=== PATIENT | female | born 2000 | race Hispanic/Latino ===

== ENCOUNTER 2023-02-17 13:20 | Emergency (ER) | payer MEDICAID ==
[~2023-02-17] VITALS: Ht 149.9 cm; Wt 83.0 kg
[2023-02-17 14:59] LABS: BASOPHILS % (AUTO) 0.3 % (0.0-5.0); EOSINOPHILS % (AUTO) 0.7 % (0.0-8.0); LYMPHOCYTES % (AUTO) 14.6 % (21.0-51.0); MEAN CORPUSCULAR HEMOGLOBIN 31.1 pg (27.0-33.0); MEAN CORPUSCULAR HGB CONC 35.1 g/dL (32.0-36.0); MEAN CORPUSCULAR VOLUME 88.5 fL (79-99); MONOCYTES % (AUTO) 4.5 % (3.0-13.0); PLATELET COUNT (AUTO) 346 K/uL (130-400); RED BLOOD CELL COUNT(AUTO) 4.18 MIL/uL (4.00-5.50); RED CELL DISTRIBUTION WIDTH 14.4 % (11.0-15.5); WHITE BLOOD COUNT (AUTO) 10.7 K/uL (4.8-10.8)
[2023-02-17 15:01] LABS: APPEARANCE,URINE CLOUDY (CLEAR); BILIRUBIN,URINE NEGATIVE (NEGATIVE); COLOR,URINE YELLOW (YELLOW); GLUCOSE, URINE (UA) NEGATIVE (NEGATIVE); KETONES,URINE NEGATIVE (NEGATIVE); LEUKOCYTE ESTERASE ,URINE NEGATIVE Leu/uL (NEGATIVE); NITRATE,URINE NEGATIVE (NEGATIVE); OCCULT BLOOD,URINE SMALL (NEGATIVE); PROTEIN,URINE 600 mg/dL (NEGATIVE); UROBILINOGEN,URINE 0.2 mg/dL (0.2-1.0)
[2023-02-17 15:06] LABS: BACTERIA,URINE RARE /HPF (None Seen); SQUAMOUS EPITHELIAL CELL,UR MOD /HPF (0-2)
[2023-02-17 15:07] LABS: CREATININE 0.8 mg/dL (0.5-1.5); POTASSIUM 3.3 mmol/L (3.5-5.1)
[2023-02-17 15:11] LABS: TOTAL PROTEIN, SERUM 5.3 g/dL (6.0-8.3)
[2023-02-17 15:23] LABS: B-TYPE NATRIURETIC PEPTIDE 30 pg/mL (0-100)
[2023-02-17] MEDS ORDERED: ACETAMINOPHEN 500 MG TABLET PO ONE (20:00)
[2023-02-17] MEDS ORDERED: CEPH500B PO (20:16)
[2023-02-17 20:42] VITALS: BP 125/77
== END 2023-02-17 20:47 | disposition home or self-care (01) ==
LOC: EDH 13:20
DX: O23.42 Unspecified infection of urinary tract in pregnancy, second trimester (principal); N39.0 Urinary tract infection, site not specified; O12.02 Gestational edema, second trimester; Z3A.22 22 weeks gestation of pregnancy
CPT/HCPCS: 36415; 76770; 80053; 81001; 83880; 85025; 93971

== ENCOUNTER 2023-03-12 15:46 | Observation (INO) | payer MEDICAID ==
[~2023-03-12] VITALS: Ht 149.9 cm; Wt 99.8 kg
[~2023-03-12 15:46] MED LIST: CEPH500B PO
[2023-03-12 17:57] LABS: APPEARANCE,URINE CLOUDY (CLEAR); BILIRUBIN,URINE NEGATIVE (NEGATIVE); COLOR,URINE YELLOW (YELLOW); GLUCOSE, URINE (UA) NEGATIVE (NEGATIVE); KETONES,URINE NEGATIVE (NEGATIVE); LEUKOCYTE ESTERASE ,URINE NEGATIVE Leu/uL (NEGATIVE); NITRATE,URINE NEGATIVE (NEGATIVE); OCCULT BLOOD,URINE SMALL (NEGATIVE); PROTEIN,URINE 600 mg/dL (NEGATIVE); UROBILINOGEN,URINE 0.2 mg/dL (0.2-1.0)
[2023-03-12 18:24] LABS: BACTERIA,URINE FEW /HPF (None Seen); MUCUS,URINE RARE LPF (None Seen); SQUAMOUS EPITHELIAL CELL,UR MOD /HPF (0-2)
[2023-03-12 19:21] LABS: HEMATOCRIT 35.8 % (36-48); MEAN CORPUSCULAR HEMOGLOBIN 31.5 pg (27.0-33.0); MEAN CORPUSCULAR HGB CONC 34.4 g/dL (32.0-36.0); MEAN CORPUSCULAR VOLUME 91.6 fL (79-99); RED BLOOD CELL COUNT(AUTO) 3.91 MIL/uL (4.00-5.50); RED CELL DISTRIBUTION WIDTH 13.7 % (11.0-15.5)
[2023-03-12 19:23] LABS: CARBON DIOXIDE 22 mmol/L (21-32); CHLORIDE 107 mmol/L (101-111); CREATININE 0.6 mg/dL (0.5-1.5); GLOMERULAR FILTR. RATE CALC 128 mL/min (>90); GLUCOSE,RANDOM 93 mg/dL (70-105); POTASSIUM 3.8 mmol/L (3.5-5.1); SODIUM SERUM 133 mmol/L (136-145); UREA NITROGEN, BLOOD 8 mg/dL (7-18)
[2023-03-12 19:27] LABS: ALANINE AMINOTRANSFERASE 30 U/L (12-78); ASPARTATE AMINOTRANSFERASE 18 U/L (10-37); TOTAL PROTEIN, SERUM 4.1 g/dL (6.0-8.3)
[2023-03-12 19:28] LABS: ALBUMIN < 0.6 g/dL (3.5-5.0)
[2023-03-12 20:12] VITALS: BP 106/69
[2023-03-12] MEDS ORDERED: AEC81 PO (21:25)
[2023-03-12] MEDS ORDERED: PREN-154 PO (21:25)
[2023-03-12 23:22] VITALS: BP 102/60
[2023-03-13 03:53] VITALS: BP 107/60
[2023-03-13 08:07] VITALS: BP 114/58
[2023-03-13 12:12] VITALS: BP 99/63
[2023-03-13] MEDS: CELESTONE SOLUSPAN 6 MG/ML 5ML VIAL IM SCH (12:59)
[2023-03-13 16:24] VITALS: BP 111/63
[2023-03-13] MEDS ORDERED: PHARMACY COMMUNICATION MISC SCH (16:30)
[2023-03-13] MEDS ORDERED: ALBUMIN (HUMAN) 25% 100 ML IV ONE (17:00)
[2023-03-13 18:57] LABS: CREATININE,SERUM FOR CRCL 0.6 mg/dL (0.6-1.3)
[2023-03-13 19:13] VITALS: BP 112/66
[2023-03-13 20:36] LABS: COLLECTION PERIOD,URINE 24 HR; TOTAL VOLUME 24HRS,URINE 650 mL; TPROTEIN TIMED,URINE 2590 mg/dL; TPROTEIN U,24HR CALC 16835 mg/24HR (0-165)
[2023-03-13] MEDS: FAMOTIDINE 20MG TAB PO SCH (20:49)
[2023-03-13] MEDS: PREDNISONE 20 MG TABLET PO SCH (20:50)
[2023-03-13] MEDS ORDERED: ALBUMIN (HUMAN) 25% 100 ML IV SCH (22:00)
[2023-03-13 22:25] VITALS: BP 112/68
[2023-03-13] MEDS ORDERED: ACETAMINOPHEN 325 MG TAB PO PRN (23:00)
[2023-03-14] MEDS: ALBUMIN (HUMAN) 25% 100 ML IV SCH ×2 (00:58→09:10)
[2023-03-14 02:13] VITALS: BP 118/63
[2023-03-14 04:28] LABS: BASOPHILS % (AUTO) 0.1 % (0.0-5.0); HEMATOCRIT 31.4 % (36-48); LYMPHOCYTES % (AUTO) 6.8 % (21.0-51.0); MEAN CORPUSCULAR HEMOGLOBIN 31.6 pg (27.0-33.0); MEAN CORPUSCULAR VOLUME 90.2 fL (79-99); MONOCYTES % (AUTO) 1.8 % (3.0-13.0); NEUTROPHILS % (AUTO) 90.7 % (40.0-77.0); PLATELET COUNT (AUTO) 345 K/uL (130-400); RED BLOOD CELL COUNT(AUTO) 3.48 MIL/uL (4.00-5.50); RED CELL DISTRIBUTION WIDTH 13.4 % (11.0-15.5)
[2023-03-14 04:43] LABS: ALBUMIN 1.3 g/dL (3.5-5.0); CREATININE 0.9 mg/dL (0.5-1.5); POTASSIUM 3.7 mmol/L (3.5-5.1); TOTAL PROTEIN, SERUM 4.5 g/dL (6.0-8.3)
[2023-03-14 07:30] VITALS: BP 116/63
[2023-03-14] MEDS: FAMOTIDINE 20MG TAB PO SCH (09:10)
[2023-03-14] MEDS: PREDNISONE 20 MG TABLET PO SCH ×2 (09:10→14:22)
[2023-03-14 12:04] VITALS: BP 126/64
[2023-03-14] MEDS: CELESTONE SOLUSPAN 6 MG/ML 5ML VIAL IM SCH (12:34)
[2023-03-14 16:14] VITALS: BP 108/67
[2023-03-14] MEDS ORDERED: ALBUMIN (HUMAN) 25% 100 ML IV ONE (17:00)
== END 2023-03-14 17:10 | disposition home or self-care (01) ==
LOC: EDH 15:46 → LDH 15:47 → WSH 20:05
PROVIDERS: ADMIT Internal Medicine; ATTEND Internal Medicine
DX: O26.832 Pregnancy related renal disease, second trimester (principal); N04.1 Nephrotic syndrome with focal and segmental glomerular lesions; N17.9 Acute kidney failure, unspecified; O99.282 Endocrine, nutritional and metabolic diseases complicating pregnancy, second trimester; E87.1 Hypo-osmolality and hyponatremia; O12.02 Gestational edema, second trimester; O26.893 Other specified pregnancy related conditions, third trimester; R53.1 Weakness; O12.22 Gestational edema with proteinuria, second trimester; Z3A.25 25 weeks gestation of pregnancy; Z79.899 Other long term (current) drug therapy; Z98.890 Other specified postprocedural states
CPT/HCPCS: 99284; 80053 ×2; 85027; 86592; 86850; 86900; 86901; 87088; 87340; 81001; 36415 ×2; 96372 ×2; 96365; 82575; 84156; 96366; 85025; G0378 ×48; J0702 ×2; P9046 ×3

== ENCOUNTER 2024-02-09 14:15 | Emergency (ER) | payer MEDICAID ==
[~2024-02-09] VITALS: Ht 152.4 cm; Wt 90.3 kg
[~2024-02-09 14:15] MED LIST changes: +AEC81 PO; -CEPH500B PO; +PREN-154 PO
[2024-02-09 14:43] VITALS: BP 131/84; PULSE 85; RESP 18; O2SAT 97
[2024-02-09 15:08] LABS: HCG,QUALITATIVE URINE NEGATIVE (NEGATIVE)
[2024-02-09 15:23] LABS: APPEARANCE,URINE CLEAR (CLEAR); BILIRUBIN,URINE 0.5 mg/dL (NEGATIVE); COLOR,URINE YELLOW (YELLOW); GLUCOSE, URINE (UA) NEGATIVE (NEGATIVE); KETONES,URINE NEGATIVE (NEGATIVE); LEUKOCYTE ESTERASE ,URINE NEGATIVE Leu/uL (NEGATIVE); NITRATE,URINE NEGATIVE (NEGATIVE); OCCULT BLOOD,URINE MODERATE (NEGATIVE); PH,URINE 6.5 (5.0-8.0); PROTEIN,URINE 600 mg/dL (NEGATIVE); UROBILINOGEN,URINE 3 mg/dL (0.2-1.0)
[2024-02-09 15:28] LABS: ADD UA MICROSCOPIC YES
[2024-02-09 15:30] LABS: BACTERIA,URINE RARE /HPF (None Seen); MUCUS,URINE FEW LPF (None Seen); SQUAMOUS EPITHELIAL CELL,UR FEW /HPF (0-2)
[2024-02-09] MEDS ORDERED: PRED20TA3 PO (16:18)
[2024-02-09] MEDS ORDERED: CEPH250C2 PO (16:18)
[2024-02-09] MEDS: CEFTRIAXONE 1G VIAL IM ONE (16:28)
[2024-02-09] MEDS: DEXAMETHASONE SOD PHOSPHATE 4 MG/ML 1ML VIAL IM ONE (16:28)
== END 2024-02-09 16:57 | disposition home or self-care (01) ==
LOC: EDH 14:15
DX: N39.0 Urinary tract infection, site not specified (principal); N04.9 Nephrotic syndrome with unspecified morphologic changes; Z79.82 Long term (current) use of aspirin
CPT/HCPCS: 99284; 87088; 81001; 81025; 96372 ×2; J1100; J0696

== ENCOUNTER 2024-02-12 12:27 | Emergency (ER) | payer MEDICAID ==
[~2024-02-12] VITALS: Ht 152.4 cm; Wt 89.8 kg
[~2024-02-12 12:27] MED LIST changes: +CEPH250C2 PO; +PRED20TA3 PO
[2024-02-12 12:51] LABS: HEMATOCRIT 42.6 % (36-48); MEAN CORPUSCULAR HEMOGLOBIN 28.7 pg (27.0-33.0); MEAN CORPUSCULAR HGB CONC 34.3 g/dL (32.0-36.0); MEAN CORPUSCULAR VOLUME 83.9 fL (79-99); RED BLOOD CELL COUNT(AUTO) 5.08 MIL/uL (4.00-5.50); RED CELL DISTRIBUTION WIDTH 13.1 % (11.0-15.5); WHITE BLOOD COUNT (AUTO) 10.1 K/uL (4.8-10.8)
[2024-02-12 13:05] LABS: CREATININE 1.1 mg/dL (0.5-1.0); POTASSIUM 3.2 mmol/L (3.5-5.1)
[2024-02-12 13:10] LABS: ALBUMIN 1.2 g/dL (3.5-5.0); BILIRUBIN,TOTAL 0.2 mg/dL (0.2-1.0); TOTAL PROTEIN, SERUM 5.2 g/dL (6.0-8.3)
[2024-02-12] MEDS: FUROSEMIDE 20MG VIAL IV ONE (13:30)
[2024-02-12] MEDS: 0.9%NACL 1000ML 1,000 ML IV ONE ×2 (13:30→15:23)
[2024-02-12 15:28] LABS: APPEARANCE,URINE CLEAR (CLEAR); BILIRUBIN,URINE NEGATIVE (NEGATIVE); COLOR,URINE COLORLESS (YELLOW); GLUCOSE, URINE (UA) NEGATIVE (NEGATIVE); KETONES,URINE NEGATIVE (NEGATIVE); LEUKOCYTE ESTERASE ,URINE NEGATIVE Leu/uL (NEGATIVE); NITRATE,URINE NEGATIVE (NEGATIVE); OCCULT BLOOD,URINE NEGATIVE (NEGATIVE); PROTEIN,URINE 200 mg/dL (NEGATIVE); UROBILINOGEN,URINE 0.2 mg/dL (0.2-1.0)
[2024-02-12 15:43] LABS: ADD UA MICROSCOPIC YES
[2024-02-12 15:44] LABS: BACTERIA,URINE RARE /HPF (None Seen); HYALINE CASTS, URINE 0-1 /LPF (0-1 /LPF); MUCUS,URINE RARE LPF (None Seen); OTHER CASTS, URINE 2 /LPF (None Seen); RBC,URINE 0-1 /HPF (0-1); SQUAMOUS EPITHELIAL CELL,UR RARE /HPF (0-2); WBC,URINE 0-1 /HPF (0-1)
[2024-02-12] MEDS ORDERED: FURO20TA4 PO (16:51)
[2024-02-12 18:04] VITALS: BP 105/77; PULSE 74; RESP 18; O2SAT 97
== END 2024-02-12 18:16 | disposition home or self-care (01) ==
LOC: EDH 12:27
DX: M79.89 Other specified soft tissue disorders (principal); E86.0 Dehydration; N04.9 Nephrotic syndrome with unspecified morphologic changes; N18.9 Chronic kidney disease, unspecified; Z79.82 Long term (current) use of aspirin; Z79.899 Other long term (current) drug therapy; Z98.890 Other specified postprocedural states
CPT/HCPCS: 99283; 96374; 96361; 80053; 85027; 81001; 36415; J7030 ×2; J1940

== ENCOUNTER 2024-03-10 09:09 | Emergency (ER) | payer OTHER, MEDICAID ==
[~2024-03-10] VITALS: Ht 152.4 cm; Wt 97.5 kg
[~2024-03-10 09:09] MED LIST changes: +FURO20TA4 PO
[2024-03-10 09:53] LABS: APPEARANCE,URINE CLEAR (CLEAR); BILIRUBIN,URINE NEGATIVE (NEGATIVE); COLOR,URINE LIGHT-YELLOW (YELLOW); GLUCOSE, URINE (UA) NEGATIVE (NEGATIVE); KETONES,URINE NEGATIVE (NEGATIVE); LEUKOCYTE ESTERASE ,URINE NEGATIVE Leu/uL (NEGATIVE); NITRATE,URINE NEGATIVE (NEGATIVE); OCCULT BLOOD,URINE SMALL (NEGATIVE); PH,URINE 6.5 (5.0-8.0); PROTEIN,URINE 600 mg/dL (NEGATIVE); UROBILINOGEN,URINE 0.2 mg/dL (0.2-1.0)
[2024-03-10 09:58] LABS: BASOPHILS # (AUTO) 0.02 K/uL (0.00-0.20); BASOPHILS % (AUTO) 0.3 % (0.0-5.0); EOSINOPHILS # (AUTO) 0.08 K/uL (0.00-0.70); EOSINOPHILS % (AUTO) 1.1 % (0.0-8.0); HEMATOCRIT 41.6 % (36-48); IMMATURE GRANULOCYTE ABSOLUTE 0.02 K/uL (0-1); LYMPHOCYTES # (AUTO) 2.1 K/uL (1.0-4.8); LYMPHOCYTES % (AUTO) 28.5 % (21.0-51.0); MEAN CORPUSCULAR HEMOGLOBIN 28.9 pg (27.0-33.0); MEAN CORPUSCULAR HGB CONC 34.1 g/dL (32.0-36.0); MEAN CORPUSCULAR VOLUME 84.7 fL (79-99); MONOCYTES # (AUTO) 0.5 K/uL (0.1-1.0); MONOCYTES % (AUTO) 6.6 % (3.0-13.0); NEUTROPHILS # (AUTO) 4.6 K/uL (1.8-7.7); NEUTROPHILS % (AUTO) 63.2 % (40.0-77.0); PLATELET COUNT (AUTO) 488 K/uL (130-400); RED BLOOD CELL COUNT(AUTO) 4.91 MIL/uL (4.00-5.50); RED CELL DISTRIBUTION WIDTH 13.8 % (11.0-15.5); WHITE BLOOD COUNT (AUTO) 7.2 K/uL (4.8-10.8)
[2024-03-10 10:06] LABS: CREATININE 1.3 mg/dL (0.5-1.0); POTASSIUM 3.5 mmol/L (3.5-5.1)
[2024-03-10 10:11] LABS: ALBUMIN 0.8 g/dL (3.5-5.0); BILIRUBIN,TOTAL 0.2 mg/dL (0.2-1.0); TOTAL PROTEIN, SERUM 5.1 g/dL (6.0-8.3)
[2024-03-10 10:11] LABS: ADD UA MICROSCOPIC YES
[2024-03-10 10:23] LABS: BACTERIA,URINE FEW /HPF (None Seen); MUCUS,URINE RARE LPF (None Seen); OTHER CASTS, URINE 5 /LPF (None Seen); RBC,URINE 0-1 /HPF (0-1); SQUAMOUS EPITHELIAL CELL,UR RARE /HPF (0-2)
[2024-03-10 10:24] LABS: B-TYPE NATRIURETIC PEPTIDE 57 pg/mL (0-100)
[2024-03-10] MEDS: FUROSEMIDE 40MG VIAL IV ONE (13:06)
[2024-03-10] MEDS ORDERED: FURO-152 PO (14:31)
[2024-03-10 14:44] VITALS: BP 119/77; PULSE 72; RESP 18; O2SAT 99
== END 2024-03-10 14:56 | disposition home or self-care (01) ==
LOC: EDH 09:09
DX: N04.9 Nephrotic syndrome with unspecified morphologic changes (principal); M79.89 Other specified soft tissue disorders; Z79.82 Long term (current) use of aspirin; Z79.84 Long term (current) use of oral hypoglycemic drugs; Z79.899 Other long term (current) drug therapy; Z98.890 Other specified postprocedural states
CPT/HCPCS: 99285; 96374; 71045; 84484; 80053; 83880; 85025; 81001; 36415; 93005; J1940

== ENCOUNTER 2024-08-10 09:48 | Emergency (ER) | payer OTHER, MEDICAID ==
[~2024-08-10] VITALS: Ht 152.4 cm; Wt 90.7 kg
[~2024-08-10 09:48] MED LIST changes: +FURO-152 PO
--- NOTE | 2024-08-10 10:56 | ERN ---
General Chief Complaint: Elbow Problem Stated Complaint: RT ELBOW, LT KNEE, FALL 2 DAYS AGO Time Seen by MD: 10:07 Time Seen by Midlevel: 10:07 Source: patient History of Present Illness Initial Comments 23-year-old female presents to the ED for evaluation of right elbow pain onset 2 days ago. Patient reports left knee pain and fall, but denies any head injury, LOC or any other associated symptoms at this time. Patient reports she tripped and fell landing on her elbow and her knee. Allergies: Coded Allergies: No Known Allergies (Unverified Allergy, Unknown, 02/17/23) Home Meds Active Scripts Furosemide (Lasix) 20 Mg Tablet, 2 TAB PO DAILY for 5 Days, #10 TAB 0 Refills Prov:REVA NELSON MD 03/10/24 Furosemide (Furosemide) 20 Mg Tablet, 20 MG PO DAILY, #15 TAB Prov:KEVIN MAGDALENO VISCOSITY TESTER 02/12/24 Prednisone (Prednisone) 20 Mg Tablet, 20 MG PO DAILY for 5 Days, #5 TAB Prov:SUZAN TOWNSEND MD 02/09/24 Cephalexin (Keflex 250Mg Caps) 250 Mg Capsule, 250 MG PO TID for 5 Days, #15 CAP Prov:SUZAN TOWNSEND MD 02/09/24 Reported Medications Vits #93/Iron Fum/FA ( Formula Tablet) 1 Each Tablet, 1 EACH PO DAILY, TAB 03/12/23 Aspirin (ASPIRIN 81 MG ECTAB) 81 Mg Ectab, 81 MG PO DAILY, TAB.EC 03/12/23 Past Medical History Past Medical History: Other Medical History Other: FSGS Past Surgical History: Family History Family History: Negative Social History Social History: Negative, Lives with family Female( History) History: Not Applicable LMP: Jul 22, 2024 : 1 Para: 0 Aborts: 0 ROS Dictation Constitutional: Negative for fever,chills, and weight loss Eyes: Negative for injury, pain,redness, and discharge ENT: Negative for injury,pain or swelling Cardiovascular: Negative for chest pain, palpitations, and edema Respiratory: Negative for shortness of breath, cough, and wheezing, Abdomen/GI: Negative for abdominal pain, nausea, vomiting, diarrhea, and constipation Back: Negative for injury and pain : Negative for injury, bleeding and discharge MS/Extremity: Positive for right elbow pain, left knee pain Skin: Negative for rash, and discoloration Neuro: Negative for headache, weakness, numbness, tingling, and seizure Psych: Negative for suicide ideation, homicidal ideation, and hallucinations Physical Exam Physical Exam Dictation General: awake, alert, NAD Head/Face: Normocephalic, atraumatic Eyes: PERRL, EOMI, vision at baseline ENT: oral cavity clear, TMs clear, no signs of infection Neck: Trachea midline, supple, no nuchal rigidity Cardiovascular: RRR, normal S1/S2, No MRGs, no JVD Respiratory: CTAB, no respiratory distress, No rales or wheezes Abdomen: Soft, non-tender, non-distended, normal bowel sounds, no guarding or rebound. Skin: Warm, dry, normal turgor, no rash MS/Extremity: Pulses equal, no cyanosis, neurovascular intact, FROM Neuro: COAx4, GCS 15, strength 5/5, CN 2-12 intact, normal cerebellar exam, normal gait, Psych: Normal behavior, mood, and affect normal MDM MDM: Differential diagnosis: Fall, contusion, elbow pain, knee pain Previous outside records reviewed: Old ER visits. Need for hospitalization: Patient does not meet criteria for hospitalization. Need for emergency major/minor surgery: No Patient's prior external medical records from other ER visits were reviewed by me as indicated. Prior testing and results from previous visits were reviewed. Prior tests were taken into account with medical decision making and resource utilization, independent historian/historians were used to obtain complete medical history. I independently interpreted the test that were performed, results were reviewed by me and considered findings on radiology if ordered. Medical management and examination interpretation discussions were had by me with other qualified healthcare professionals as indicated for the patient's care. ED Course Orders Procedure Category Date Status Time Elbow Comp 3+Vws Rt RAD 08/10/24 Resulted 10:54 Humerus 2+Vws Rt RAD 08/10/24 Taken 10:54 Shoulder Comp 2+Vws Rt RAD 08/10/24 Taken 10:54 Knee 3vws Lt RAD 08/10/24 Taken 10:54 Acetaminophen 500mg PHA 08/10/24 Complete Tab (Tylenol 500mg T 12:30 Current Medications Medications (Trade) Dose Ordered Sig/Mk Route PRN Reason Start Time Stop Time Status Last Admin Dose Admin Acetaminophen (TYLenol 500MG TAB) 1,000 mg ONCE ONCE PO 08/10/24 12:30 08/10/24 12:31 DC 08/10/24 12:27 Vital Signs Date Time Temp Pulse Resp B/P (MAP) Pulse Ox O2 Delivery O2 Flow Rate FiO2 08/10/24 12:22 81 16 127/89 98 Room Air* 0 08/10/24 09:54 97.9 80 16 133/90 100 Room Air* 0 08/10/24 09:50 97.9 87 16 133/90 100 Room Air 0 DX & DISP Disposition: Discharge Departure Impression: Primary Impression: Contusion of right elbow Additional Impressions: Contusion of left knee, Fall Condition: Stable Scripts Ketorolac Tromethamine (Ketorolac Tromethamine) 10 Mg Tablet 1 TAB PO TID for pain for 5 Days, #15 TAB 0 Refills Prov: ZAIRE TEE 08/10/24 Referrals: NONE (PCP) RICKIE CASTAÑEDA MD Time of Disposition: 12:52 I have reviewed, & agreed with my scribe's, documentation. (Entered by Fanny Jeong, acting as a scribe for KIRIT Tee) I have reviewed the case, and I agree with, Diagnosis and Plan I performed the substantive portion of the visit. I have reviewed and personally made and approve the management plan that is documented in the note by myself or the JONNY. I acknowledge for responsibility for the patient's management plan. I personally scribed for ZAIRE TEE (JOHN) on 08/10/24 at 10:56. Electronically submitted by Fanny Jeong ([email or web address]). ZAIRE TEE Aug 10, 2024 10:56
[2024-08-10] MEDS: acetaMINOPHEN 500 MG TABLET PO ONE (12:27)
--- NOTE | 2024-08-10 12:28 | HMCIMG ---
ELBOW COMP 3+VWS RT HISTORY: Status post fall COMPARISON: None TECHNIQUE: 2 images of right elbow were obtained. FINDINGS: There is no acute displaced fracture or dislocation. Soft tissue swelling is seen. IMPRESSION: 1. Findings as described above.
[2024-08-10] MEDS ORDERED: KETO10TA2 PO (12:52)
[2024-08-10 13:21] VITALS: BP 132/88; PULSE 88; RESP 16; TEMP 98.1; O2SAT 98
--- NOTE | 2024-08-10 13:47 | HMCIMG ---
HUMERUS 2+VWS RT HISTORY: Status post fall COMPARISON: None TECHNIQUE: Images were obtained. FINDINGS: There is no acute displaced fracture or dislocation. IMPRESSION: 1. Findings as described above.
--- NOTE | 2024-08-10 13:47 | HMCIMG ---
KNEE 3VWS LT HISTORY: Status post fall COMPARISON: None TECHNIQUE: 3 images of left knee were obtained. FINDINGS: There is no acute displaced fracture or dislocation. IMPRESSION: 1. Findings as described above.
--- NOTE | 2024-08-10 13:48 | HMCIMG ---
SHOULDER COMP 2+VWS RT HISTORY: Status post fall COMPARISON: None TECHNIQUE: 2 images of right shoulder were obtained. FINDINGS: There is no acute displaced fracture or dislocation. Degenerative changes are seen. IMPRESSION: 1. Findings as described above.
== END 2024-08-10 13:45 | disposition home or self-care (01) ==
LOC: EDH 09:48
DX: S50.01XA Contusion of right elbow, initial encounter (principal); S80.02XA Contusion of left knee, initial encounter; Z79.52 Long term (current) use of systemic steroids; Z79.82 Long term (current) use of aspirin; Z79.899 Other long term (current) drug therapy; W01.0XXA Fall on same level from slipping, tripping and stumbling without subsequent striking against object, initial encounter; Y93.89 Activity, other specified; Y92.89 Other specified places as the place of occurrence of the external cause; Y99.8 Other external cause status
CPT/HCPCS: 29505; 73030; 73060; 73080; 73562; 99284

== ENCOUNTER 2025-03-15 15:44 | Emergency (ER) | payer MEDICAID, OTHER ==
[~2025-03-15] VITALS: Ht 152.4 cm; Wt 99.8 kg
[~2025-03-15 15:44] MED LIST changes: +KETO10TA2 PO
[2025-03-15 16:24] LABS: APPEARANCE,URINE CLEAR (CLEAR); BILIRUBIN,URINE NEGATIVE (NEGATIVE); COLOR,URINE LIGHT-YELLOW (YELLOW); GLUCOSE, URINE (UA) NEGATIVE (NEGATIVE); KETONES,URINE NEGATIVE (NEGATIVE); LEUKOCYTE ESTERASE ,URINE 250 Leu/uL (NEGATIVE); NITRATE,URINE NEGATIVE (NEGATIVE); OCCULT BLOOD,URINE SMALL (NEGATIVE); PROTEIN,URINE 300 mg/dL (NEGATIVE); UROBILINOGEN,URINE 0.2 mg/dL (0.2-1.0)
[2025-03-15 16:29] LABS: ADD UA MICROSCOPIC YES
[2025-03-15 16:32] LABS: MUCUS,URINE RARE LPF (None Seen); SQUAMOUS EPITHELIAL CELL,UR FEW /HPF (0-2); WBC,URINE >100 /HPF (0-1)
[2025-03-15] MEDS ORDERED: CEPH500T PO (17:23)
--- NOTE | 2025-03-15 17:23 | ERN ---
ED Note History of Present Illness Stated Complaint: DYSURIA Chief Complaint: Painful Urination Time Seen by MD: 15:48 Time Seen by Midlevel: 16:00 Dictation: 24 y/o female c/o dysuria onset this morning.No fever, nausea, vomiting, diarrhea Allergies: Coded Allergies: No Known Allergies (Unverified Allergy, Unknown, 02/17/23) Home Meds Active Scripts Cephalexin (Cephalexin) 500 Mg Tablet, 1 TAB PO TID for 10 Days, #30 TAB 0 Refills Prov:MAGUI MARRERO DIGITAL PRE PRESS OPERATOR 03/15/25 Ketorolac Tromethamine (Ketorolac Tromethamine) 10 Mg Tablet, 1 TAB PO TID for pain for 5 Days, #15 TAB 0 Refills Prov:ZAIRE OCAMPO 08/10/24 Furosemide (Lasix) 20 Mg Tablet, 2 TAB PO DAILY for 5 Days, #10 TAB 0 Refills Prov:REVA NELSON MD 03/10/24 Furosemide (Furosemide) 20 Mg Tablet, 20 MG PO DAILY, #15 TAB Prov:KEVIN MAGDALENO PHYSICAL SCIENCE PROFESSOR 02/12/24 Prednisone (Prednisone) 20 Mg Tablet, 20 MG PO DAILY for 5 Days, #5 TAB Prov:SUZAN TOWNSEND MD 02/09/24 Cephalexin (Keflex 250Mg Caps) 250 Mg Capsule, 250 MG PO TID for 5 Days, #15 CAP Prov:SUZAN TOWNSEND MD 02/09/24 Reported Medications Vits #93/Iron Fum/FA ( Formula Tablet) 1 Each Tablet, 1 EACH PO DAILY, TAB 03/12/23 Aspirin (ASPIRIN 81 MG ECTAB) 81 Mg Ectab, 81 MG PO DAILY, TAB.EC 03/12/23 Past Medical History Past Medical History: Other Additional Past Medical Hx: FSGS Surgical History: Family History: Negative Social History: Negative, Lives with family History: Not Applicable LMP: February 12, 2025 : 1 Para: 0 Aborts: 0 Review of System Dictation Constitutional: Negative for fever,chills, and weight loss Eyes: Negative for injury, pain,redness, and discharge ENT: Negative for injury,pain or swelling Cardiovascular: Negative for chest pain, palpitations, and edema Respiratory: Negative for shortness of breath, cough, and wheezing, Abdomen/GI: Negative for abdominal pain, nausea, vomiting, diarrhea, and constipation Back: Negative for injury and pain : Negative for injury, bleeding and discharge, dysuria MS/Extremity: Negative for injury and deformity Skin: Negative for rash, and discoloration Neuro: Negative for headache, weakness, numbness, tingling, and seizure Psych: Negative for suicide ideation, homicidal ideation, and hallucinations Review of Systems: was completed Initial Vital Sign VS Vital Signs Date Time Temp Pulse Resp B/P (MAP) Pulse Ox O2 Delivery O2 Flow Rate FiO2 03/15/25 15:46 97.9 91 16 121/92 96 Room Air 0 Physical Exam Dictation General: awake, alert, NAD Head/Face: Normocephalic, atraumatic Eyes: PERRL, EOMI, vision at baseline ENT: oral cavity clear, TMs clear, no signs of infection Neck: Trachea midline, supple, no nuchal rigidity Cardiovascular: RRR, normal S1/S2, No MRGs, no JVD Respiratory: CTAB, no respiratory distress, No rales or wheezes Abdomen: Soft, non-tender, non-distended, normal bowel sounds, no guarding or rebound. Skin: Warm, dry, normal turgor, no rash MS/Extremity: Pulses equal, no cyanosis, neurovascular intact, FROM Neuro: COAx4, GCS 15, strength 5/5, CN 2-12 intact, normal cerebellar exam, normal gait, Psych: Normal behavior, mood, and affect normal Results (Laboratory/Radiology) Laboratory/Radiology Laboratory Tests Test 03/15/25 16:05 03/15/25 16:08 Human Chorionic Gonadotropin, Quant 0 mIU/mL (0-5) Urine Color LIGHT-YELLOW (YELLOW) Urine Appearance CLEAR (CLEAR) Urine pH 6.0 (5.0-8.0) Urine Specific [place] 1.020 (1.001-1.031) Urine Protein 300 mg/dL (NEGATIVE) H Urine Glucose (UA) NEGATIVE mg/dL (NEGATIVE) Urine Ketones NEGATIVE mg/dL (NEGATIVE) Urine Occult Blood SMALL (NEGATIVE) H Urine Nitrate NEGATIVE (NEGATIVE) Urine Bilirubin NEGATIVE mg/dL (NEGATIVE) Urine Urobilinogen 0.2 mg/dL (0.2-1.0) Urine Leukocyte Esterase 250 Nery/uL (NEGATIVE) H Urine RBC 6-10 /HPF (0-1) H Urine WBC >100 /HPF (0-1) H Urine Squamous Epithelial Cells FEW /HPF (0-2) Urine Bacteria None /HPF (None Seen) Labs Reviewed?: Yes ED Course ED Course Orders Procedure Category Date Status Time Urinalysis Profile LAB 03/15/25 Complete 15:49 Hcg,Quantitative LAB 03/15/25 Complete 15:49 Culture Urine GEOFFREY 03/15/25 In Process 16:29 Ceftriaxone 1g Vial PHA 03/15/25 Complete (Rocephine 1g Inj) 17:09 Current Medications Medications (Trade) Dose Ordered Sig/Mk Route PRN Reason Start Time Stop Time Status Last Admin Dose Admin Ceftriaxone Sodium (ROCEphine 1G INJ) 1 gm ONCE STAT IM 03/15/25 17:09 03/15/25 17:11 DC 03/15/25 17:48 Vital Signs Date Time Temp Pulse Resp B/P (MAP) Pulse Ox O2 Delivery O2 Flow Rate FiO2 03/15/25 15:46 97.9 91 16 121/92 96 Room Air 0 Medical Decision Making MDM MDM: 24 y/o female c/o dysuria onset this morning.No fever, nausea, vomiting, diarrhea, denies any flank pain. blood work unremarkable. UA shows evidence of urinary tract infection. Rocephin given in the emergency room. We will discharge patient with antibiotics. Differential diagnosis: Urinary tract infection, pyelonephritis, Parkinson Rationale: Tests considered and ordered secondary to shared decision making include: Previous outside records reviewed: Old ER visits. Risk of complication and/or morbidity or mortality of patient management: None Medications-Per medication reconciliation Need for hospitalization: Patient does not meet criteria for hospitalization. Need for emergency major/minor surgery: No There are no social concerns with this patient. Prescription drug management Prescriptions will include symptomatic care Patient's prior external medical records from other ER visits were reviewed by me as indicated. Prior testing and results from previous visits were reviewed. Prior tests were taken into account with medical decision making and resource utilization, independent historian/historians were used to obtain complete medical history. I independently interpreted the test that were performed, results were reviewed by me and considered findings on radiology if ordered. Medical management and examination interpretation discussions were had by me with other qualified healthcare professionals as indicated for the patient's care. DX & DISP Disposition: Discharge Departure Impression: Primary Impression: UTI (urinary tract infection) Condition: Stable Scripts Cephalexin (Cephalexin) 500 Mg Tablet 1 TAB PO TID for 10 Days, #30 TAB 0 Refills Prov: MAGUI MARRERO DIGITAL PRE PRESS OPERATOR 03/15/25 Additional Instructions: take abx and follow up pcp Referrals: SELF,REFERRAL (PCP) Time of Disposition: 17:20 I have reviewed the case, and I agree with, Diagnosis and Plan MAGUI MARRERO NP Mar 15, 2025 17:23
[2025-03-15] MEDS: cefTRIAXone 1G VIAL IM STA (17:48)
[2025-03-15 17:59] VITALS: BP 138/84; PULSE 77; RESP 20; TEMP 98.1; O2SAT 98
== END 2025-03-15 18:01 | disposition home or self-care (01) ==
LOC: EDH 15:44
DX: N39.0 Urinary tract infection, site not specified (principal); R10.2 Pelvic and perineal pain; Z79.52 Long term (current) use of systemic steroids; Z79.82 Long term (current) use of aspirin; Z79.899 Other long term (current) drug therapy; Z98.890 Other specified postprocedural states
CPT/HCPCS: 99283; 84702; 87086 ×2; 87186; 81001; 36415; 96372; J0696

== ENCOUNTER 2025-03-27 15:54 | Emergency (ER) | payer OTHER ==
[~2025-03-27] VITALS: Ht 152.4 cm; Wt 99.8 kg
[~2025-03-27 15:54] MED LIST changes: +CEPH500T PO
[2025-03-27] MEDS ORDERED: MICO24CM2 VG (17:41)
--- NOTE | 2025-03-27 17:41 | ERN ---
General Chief Complaint: Vaginal Problems/Bleeding Stated Complaint: VAGINAL IRRITATION Time Seen by MD: 16:01 Time Seen by Midlevel: 16:01 Source: patient History of Present Illness Initial Comments 24-year-old female who presents to the emergency department due to vaginal discharge. Patient states she was recently diagnosed with a UTI one week ago. Patient initiated having vaginal itching, white clumpy discharge. Denies any vaginal pain, dysuria, abdominal pain, nausea, vomiting or further associated symptoms. Allergies: Coded Allergies: No Known Allergies (Unverified Allergy, Unknown, 02/17/23) Home Meds Active Scripts Miconazole Nitrate (Monistat 3) 4 % (200 Mg)-2 % (9 Gram) Cmb.pf.crm, 1 JONNY VG HS for 3 Days, #24 GM 0 Refills Prov:YASMANY OTERO 03/27/25 Cephalexin (Cephalexin) 500 Mg Tablet, 1 TAB PO TID for 10 Days, #30 TAB 0 Refills Prov:MAGUI MARRERO NP 03/15/25 Ketorolac Tromethamine (Ketorolac Tromethamine) 10 Mg Tablet, 1 TAB PO TID for pain for 5 Days, #15 TAB 0 Refills Prov:ZAIRE OCAMPO 08/10/24 Furosemide (Lasix) 20 Mg Tablet, 2 TAB PO DAILY for 5 Days, #10 TAB 0 Refills Prov:REVA NELSON MD 03/10/24 Furosemide (Furosemide) 20 Mg Tablet, 20 MG PO DAILY, #15 TAB Prov:KEVIN MAGDALENOP 02/12/24 Prednisone (Prednisone) 20 Mg Tablet, 20 MG PO DAILY for 5 Days, #5 TAB Prov:SUZAN TOWNSEND MD 02/09/24 Cephalexin (Keflex 250Mg Caps) 250 Mg Capsule, 250 MG PO TID for 5 Days, #15 CAP Prov:SUZAN TOWNSEND MD 02/09/24 Reported Medications Vits #93/Iron Fum/FA ( Formula Tablet) 1 Each Tablet, 1 EACH PO DAILY, TAB 03/12/23 Aspirin (ASPIRIN 81 MG ECTAB) 81 Mg Ectab, 81 MG PO DAILY, TAB.EC 03/12/23 Past Medical History Past Medical History: Renal Disese, UTI Medical History Other: FSGS Past Surgical History: None Family History Family History: Negative Social History Social History: Negative, Lives with family Female( History) History: Not Applicable : 1 Para: 0 Aborts: 0 ROS Dictation Constitutional: Negative for fever,chills, and weight loss Eyes: Negative for injury, pain,redness, and discharge ENT: Negative for injury,pain or swelling Cardiovascular: Negative for chest pain, palpitations, and edema Respiratory: Negative for shortness of breath, cough, and wheezing, Abdomen/GI: Negative for abdominal pain, nausea, vomiting, diarrhea, and constipation Back: Negative for injury and pain : Positive for vaginal itching, discharge Negative for painful urination, bleeding MS/Extremity: Negative for injury and deformity Skin: Negative for rash, and discoloration Neuro: Negative for headache, weakness, numbness, tingling, and seizure Psych: Negative for suicide ideation, homicidal ideation, and hallucinations Physical Exam Physical Exam Dictation General: awake, alert, no acute distress Head/Face: Normocephalic, atraumatic Eyes: PERRL, EOMI, normal conjunctiva ENT: oral cavity clear, oral mucosa moist Neck: Supple, normal range of motion Cardiovascular: RRR, normal S1/S2 Respiratory: CTAB, no respiratory distress Abdomen: Soft, non-tender, non-distended, no guarding or rebound. : White vaginal discharge noted on speculum exam Skin: Warm, dry, normal turgor, no rash MS/Extremity: Pulses equal, no cyanosis, neurovascular intact, FROM Neuro: COAx4, GCS 15, strength 5/5, CN 2-12 intact, normal cerebellar exam, normal gait Psych: Normal behavior, mood, and affect normal MDM MDM: Differential diagnosis: Yeast infection, STI, UTI Rationale:24-year-old female who presents to the emergency department due to vaginal discharge. Patient states she was recently diagnosed with a UTI one week ago. Patient initiated having vaginal itching, white clumpy discharge. Denies any vaginal pain, dysuria, abdominal pain, nausea, vomiting or further associated symptoms. Per physical examination white discharge noted on speculum exam with no other acute findings. Patient prescribed medication for outpatient treatment. Advised to follow up with PCP. Return to the emergency department if any worsening symptoms. Patient verbalized understanding. Patient stable for discharge. There are no social concerns with this patient. I independently interpreted the test that were performed, results were reviewed by me and considered findings on radiology if ordered. Medical management and examination interpretation discussions were had by me with other qualified healthcare professionals as indicated for the patient's care. ED Course Vital Signs Date Time Temp Pulse Resp B/P (MAP) Pulse Ox O2 Delivery O2 Flow Rate FiO2 03/27/25 17:47 98.1 72 18 138/87 97 Room Air* 0 03/27/25 17:00 98.2 75 18 140/87 95 Room Air* 0 03/27/25 16:00 98.2 78 18 144/92 94 Room Air* 0 03/27/25 15:57 98.2 78 18 144/92 94 Room Air 0 DX & DISP Disposition: Discharge Departure Impression: Primary Impression: Vaginal yeast infection Condition: Stable Scripts Miconazole Nitrate (Monistat 3) 4 % (200 Mg)-2 % (9 Gram) Cmb.pf.crm 1 JONNY VG HS for 3 Days, #24 GM 0 Refills Prov: YASMANY OTERO 03/27/25 Additional Instructions: Discharge home. Rest. Follow up with primary care DrChino in 24 hours. Return to the ER for any acute changes or worsening symptoms. If any medications were prescribed take as directed. Okay to continue home medications unless otherwise discussed during your visit in the emergency room today. Patient was also advised to follow-up with primary care physician in 1 to 2 days for continued monitoring. Referrals: SELF,REFERRAL (PCP) I performed the substantive portion of the visit. I have reviewed and personally made and approve the management plan that is documented in the notes by myself or the JONNY. I acknowledge full responsibility for the patient's management plan. YASMANY OTERO Mar 27, 2025 17:41
[2025-03-27 17:47] VITALS: BP 138/87; PULSE 72; RESP 18; TEMP 98; O2SAT 97
== END 2025-03-27 18:01 | disposition home or self-care (01) ==
LOC: EDH 15:54
DX: B37.31 Acute candidiasis of vulva and vagina (principal); Z79.52 Long term (current) use of systemic steroids; Z79.82 Long term (current) use of aspirin; Z79.899 Other long term (current) drug therapy
CPT/HCPCS: 99282; 99284

== ENCOUNTER 2025-07-28 13:35 | Emergency (ER) | payer OTHER ==
[~2025-07-28] VITALS: Ht 165.1 cm; Wt 100.7 kg
[~2025-07-28 13:35] MED LIST changes: +MICO24CM2 VG
[2025-07-28 14:20] LABS: IMMATURE GRANULOCYTE ABSOLUTE 0.03 K/uL (0-1); NUCLEATED RED BLOOD CELLS 0.0 % (0.0-0.19); PLATELET COUNT (AUTO) 385 K/uL (130-400); RED BLOOD CELL COUNT(AUTO) 4.56 MIL/uL (4.00-5.50); RED CELL DISTRIBUTION WIDTH 12.8 % (11.0-15.5); WHITE BLOOD COUNT (AUTO) 8.1 K/uL (4.8-10.8)
[2025-07-28 14:27] LABS: CREATININE 1.0 mg/dL (0.5-1.0); GLOMERULAR FILTR. RATE CALC 80.0 mL/min (>90); GLUCOSE,RANDOM 94.0 mg/dL (70-105); SODIUM SERUM 139.0 mmol/L (136-145); UREA NITROGEN, BLOOD 12.0 mg/dL (7-18)
[2025-07-28] MEDS ORDERED: BUME1TAB7 PO (15:44)
--- NOTE | 2025-07-28 15:44 | ERN ---
General Chief Complaint: LOWER EXTREMITY EDEMA Stated Complaint: LOWER EXTREMITY SWELLING Time Seen by MD: 13:36 Source: patient History of Present Illness Initial Comments Patient is a 24-year-old female coming in complaining of lower extremity swelli ng. Patient states she has a history of nephrotic syndrome in his to currently taking Bumex for diuresing. She states she has not taken it in about three days and feels as if her legs are swelling up more. Allergies: Coded Allergies: No Known Allergies (Unverified Allergy, Unknown, 02/17/23) Home Meds Active Scripts Miconazole Nitrate (Monistat 3) 4 % (200 Mg)-2 % (9 Gram) Cmb.pf.crm, 1 JONNY VG HS for 3 Days, #24 GM 0 Refills Prov:YASMANY OTERO PAC 03/27/25 Cephalexin (Cephalexin) 500 Mg Tablet, 1 TAB PO TID for 10 Days, #30 TAB 0 Refills Prov:MAGUI MARRERO [employer] 03/15/25 Ketorolac Tromethamine (Ketorolac Tromethamine) 10 Mg Tablet, 1 TAB PO TID for pain for 5 Days, #15 TAB 0 Refills Prov:ZAIRE OCAMPO PAC 08/10/24 Furosemide (Lasix) 20 Mg Tablet, 2 TAB PO DAILY for 5 Days, #10 TAB 0 Refills Prov:REVA NELSON MD 03/10/24 Furosemide (Furosemide) 20 Mg Tablet, 20 MG PO DAILY, #15 TAB Prov:KEVIN MAGDALENO [employer] 02/12/24 Prednisone (Prednisone) 20 Mg Tablet, 20 MG PO DAILY for 5 Days, #5 TAB Prov:SUZAN TOWNSEND MD 02/09/24 Cephalexin (Keflex 250Mg Caps) 250 Mg Capsule, 250 MG PO TID for 5 Days, #15 CAP Prov:SUZAN TOWNSEND MD 02/09/24 Reported Medications Vits #93/Iron Fum/FA ( Formula Tablet) 1 Each Tablet, 1 EACH PO DAILY, TAB 03/12/23 Aspirin (ASPIRIN 81 MG ECTAB) 81 Mg Ectab, 81 MG PO DAILY, TAB.EC 03/12/23 Past Medical History Past Medical History: Other Medical History Other: NEPHROTIC SYNDROME Past Surgical History: Other Surgical History Other: KIDNEY BIOPSY Family History Family History: Negative Social History Social History: Negative, Lives with family Female( History) History: Not Applicable : 1 Para: 0 Aborts: 0 ROS Dictation CONSTITUTIONAL: No chills, no fever, no weakness, no diaphoresis, no malaise. HEAD/FACE: No signs of trauma. EENT: No eye pain, no blurred vision, no tearing, no double vision, no ear pain, no ear discharge, no nose pain, no nasal congestion, no throat pain, no throat swelling, no mouth pain. RESPIRATORY: No cough, no orthopnea, no SOB, no stridor, no wheezing. CARDIOVASCULAR: No chest pain, no edema, no palpitations, no syncope. GASTROINTESTINAL/ABDOMINAL: No abdominal pain, no constipation, no diarrhea, no nausea, no vomiting. GENITOURINARY: No abnormal discharge, no dysuria, no frequent urination, no hematuria. No complaints of pain in the genitals. MUSCULOSKELETAL: No back pain, no gout, no joint pain, no joint swelling, no muscle pain, no muscle stiffness, no neck pain. INTEGUMENTARY: No change in color, no change in hair/nails, no dryness, no lesion, no lumps, no rash. NEUROLOGICAL/PSYCH: No anxiety, not depressed, no emotional problem, no headache, no numbness, no pre-existing deficit, no history of seizures, no tremors, no weakness. HEMATOLOGIC/LYMPHATIC: Not anemic, no history of blood clots, no apparent bleeding, no bruising, glands not swollen. Swelling lower extremity All Systems Negative, Except as Noted. Physical Exam Physical Exam Dictation VITAL SIGNS: Reviewed. GENERAL APPEARANCE: Alert, oriented x3, no acute distress, obese. HEAD AND FACE: Non-traumatic. EYES: PERRL, pink conjunctivas, eyelid no trauma, anterior chamber clear. EARS: Pinnas intact and no signs of trauma or erythema. Ear canals clear and no discharge. TMs no erythema. NOSE: No discharge, no bleeding. OROPHARYNX: Mouth normal, teeth no caries, tongue pink. Pharynx clear, no erythema. Tonsils no exudates, no abscesses noted. Mucous membrane moist. NECK: Supple, non-tender, no thyromegaly, no masses, no JVD, no bruits. BREAST: Deferred. CHEST: No tenderness, no crepitus, no paradoxical movement, no retractions. LUNGS: Clear, well-ventilated, symmetric, no rales, no wheezing, no rhonchi, no stridor, good breath sounds bilaterally. HEART: Regular rate, regular rhythm, no murmur, no gallops. VASCULAR: No peripheral edema. ABDOMEN: Soft, positive bowel sounds, nondistended, no guarding, nontender, no rebound, no masses no hepatomegaly, no splenomegaly, no Mondragon's sign, no hernias. RECTAL: Deferred. GENITAL: Deferred. NEUROLOGICAL: Normal speech, gross motor function intact, gross sensory function intact. MUSCULOSKELETAL: Neck nontender, full range of motion, back nontender, full range of motion. EXTREMITIES: Nontender, full range of motion. 1+ pedal edema bilateral SKIN: Color pink, dry, no turgor, no rash, no lacerations, no abrasions, no contusions. LYMPHATICS: Deferred. Results Laboratory and Microbiology Lab and Micro Result Laboratory Tests Test 07/28/25 14:08 White Blood Count 8.1 K/uL (4.8-10.8) Red Blood Count 4.56 MIL/uL (4.00-5.50) Hemoglobin 14.2 g/dL (12.0-16.0) Hematocrit 41.9 % (36-48) Mean Corpuscular Volume 91.9 fL (79-99) Mean Corpuscular Hemoglobin 31.1 pg (27.0-33.0) Mean Corpuscular Hemoglobin Concent 33.9 g/dL (32.0-36.0) Red Cell Distribution Width 12.8 % (11.0-15.5) Platelet Count 385 K/uL (130-400) Mean Platelet Volume 8.9 fL (7.5-10.5) Immature Granulocyte % (Auto) 0.4 % (0-1) Neutrophils (%) (Auto) 62.3 % (40.0-77.0) Lymphocytes (%) (Auto) 29.9 % (21.0-51.0) Monocytes (%) (Auto) 4.9 % (3.0-13.0) Eosinophils (%) (Auto) 2.1 % (0.0-8.0) Basophils (%) (Auto) 0.4 % (0.0-5.0) Neutrophils # (Auto) 5.1 K/uL (1.8-7.7) Lymphocytes # (Auto) 2.4 K/uL (1.0-4.8) Monocytes # (Auto) 0.4 K/uL (0.1-1.0) Eosinophils # (Auto) 0.17 K/uL (0.00-0.70) Basophils # (Auto) 0.03 K/uL (0.00-0.20) Absolute Immature Granulocyte (auto 0.03 K/uL (0-1) Nucleated Red Blood Cells 0.0 % (0.0-0.19) Sodium Level 139 mmol/L (136-145) Potassium Level 3.7 mmol/L (3.5-5.1) Chloride Level 106 mmol/L (101-111) Carbon Dioxide Level 28 mmol/L (21-32) Blood Urea Nitrogen 12 mg/dL (7-18) Creatinine 1.0 mg/dL (0.5-1.0) Glomerular Filtration Rate Calc 80 mL/min (>90) Random Glucose 94 mg/dL (70-105) Total Calcium 7.8 mg/dL (8.5-10.1) L Labs Reviewed?: Yes MDM MDM: Differential diagnosis: Pedal edema, nephrotic syndrome, Rationale: Tests considered and ordered secondary to shared decision making include: Previous outside records reviewed: Old ER visits. Risk of complication and/or morbidity or mortality of patient management: None Medications-Per medication reconciliation Need for hospitalization: Patient does not meet criteria for hospitalization. Need for emergency major/minor surgery: No Patient is a 44-year-old female coming in with pedal edema. Patient states that she has not taken her Bumex as indicated by her PCP. Laboratory workup today were within normal limits. Patient did present with pedal edema and states due to not taking her diuretics. How he prescribing medication for three days and advised her appropriate follow up with PCP. ED Course Orders Procedure Category Date Status Time Cbc With Differential LAB 07/28/25 Complete 13:41 Basic Metabolic Panel LAB 07/28/25 Complete 13:41 Urinalysis LAB 07/28/25 Logged W/Microscopic 13:41 ,Urine Test LAB 07/28/25 Logged 13:41 Vital Signs Date Time Temp Pulse Resp B/P (MAP) Pulse Ox O2 Delivery O2 Flow Rate FiO2 07/28/25 13:39 97.5 92 18 135/94 98 Room Air 0 DX & DISP Disposition: Discharge Departure Impression: Primary Impression: Nephrotic syndrome Condition: Stable Scripts Bumetanide (Bumex) 1 Mg Tab 1 TAB PO DAILY for 6 Days, #30 TAB 0 Refills Prov: GERALD FAUSTIN MD 07/28/25 Additional Instructions: FOLLOW-UP WITH PRIMARY CARE PROVIDER IN 1 TO 2 DAYS. TAKE MEDICATIONS DIRECTED HERE IN THE EMERGENCY ROOM. OKAY TO CONTINUE HOME MEDICATIONS UNLESS OTHERWISE DISCUSSED DURING YOUR VISIT IN THE EMERGENCY ROOM TODAY. RETURN TO YOUR NEAREST EMERGENCY ROOM IF SYMPTOMS WORSEN OR IF THERE IS NO IMPROVEMENT. CALL 911 IF YOU NEED IMMEDIATE ASSISTANCE. TAKE TYLENOL [id number] NEEDED AND IF NO CONTRAINDICATIONS ARE PRESENT. INCREASE ORAL HYDRATION. A WOUND CULTURE OR URINE CULTURE WAS ORDERED HERE IN THE EMERGENCY ROOM DEPARTMENT PLEASE FOLLOW-UP WITH PRIMARY CARE PROVIDER AND ADVISE THEM TO GET REPORTS FROM OUR FACILITY. IF YOU HAD ANY DAVID WRAP/SPLINTS THAT WERE APPLIED HERE, PLEASE DO NOT REMOVE THEM UNTIL YOU SEE YOUR PRIMARY CARE OR SPECIALTY. Referrals: Referrals: SELF,REFERRAL (PCP) ZAIRE HARRISON MD Time of Disposition: 15:43 GERALD FAUSTIN MD Jul 28, 2025 15:44
[2025-07-28 18:05] VITALS: BP 132/92; PULSE 88; RESP 16; TEMP 98.3; O2SAT 97
== END 2025-07-28 18:19 | disposition home or self-care (01) ==
LOC: EDH 13:35
DX: N05.9 Unspecified nephritic syndrome with unspecified morphologic changes (principal); Z79.52 Long term (current) use of systemic steroids; Z79.82 Long term (current) use of aspirin; Z79.899 Other long term (current) drug therapy; Z87.441 Personal history of nephrotic syndrome
CPT/HCPCS: 36415; 80048; 85025; 99283